=== PATIENT | female | born 1985 | race Caucasian/White ===

== ENCOUNTER → 2017-07-10 | Outpatient (CLI) | payer BC ==
[~2017-07-10] MED LIST: CETI10CA8 PO; DIPH-741 PO; PREN-127 PO
== END ==
LOC: LAB 13:36
PROVIDERS: ATTEND Obstetrics & Gynecology
DX: Z34.02 Encounter for supervision of normal first pregnancy, second trimester (principal)
CPT/HCPCS: 36415; 81220; 82105

== ENCOUNTER → 2017-07-24 | Outpatient (CLI) | payer BC ==
--- NOTE | 2017-07-24 14:15 | RADIOLOGY IMAGING REPORT ---
FACILITY: [facility] PATIENT NAME: Ginette Sosa : 1985 MR: [id number] V: [id number] EXAM DATE: ORDERING PHYSICIAN: DANITA CREWS TECHNOLOGIST: Location: [facility] - [place] Patient: Ginette Sosa : 1985 Visit/Account:[id number] Date of Sevice: 07/24/2017 ADDENDUM #1 The LMP percentile is 65% Report Dictated By: Isabella Almonte MD at 07/24/2017 2:28 PM Report E-Signed By: Isabella Almonte MD at 07/24/2017 2:28 PM ORIGINAL REPORT OB ANATOMICAL SURVEY HISTORY: COMPARISON: 20 weeks screening TECHNIQUE: Transabdominal imaging was performed for assessment of the fetus and maternal pelvic s tructures. Transvaginal imaging was not performed. FINDINGS: Intrauterine gestations: One. presentation: Variable. heart rate: 142 bpm. Amniotic fluid volume: Normal; JAYLON 11.2 cm; MVP 3 cm. Placenta: Posterior and fundal. Uterus: Gravid, otherwise grossly unremarkable where visualized. Maternal adnexa/ovaries: Grossly unremarkable, ovaries not visualized. Cervix: Grossly long and closed. Gestational Parameters: BPD: 4.32 cm and is in the 54th percentile HC: 16.51 cm and is in the 54th percentile AC: 14.6 cm and is in the 75th percentile FL: 2.83 cm and is within the 31st percentile Average ultrasound age (AUA): 19 weeks/ two days Estimated age based on LMP: 19 weeks/ zero days Estimated weight (EFW): 286 grams +/- 42 grams Anatomic Survey: Intracranial structures, 4-chamber heart, stomach, kidneys, urinary bladder, spine, 3-vessel cord and cord insertion are unremarkable. Two upper and two lower extremities visualized. IMPRESSION: Single fetus in viable presentation with an estimated gestational age by measurements of 19 weeks and two days. Estimated weight is 286 g +/- 40 2 g. Report Dictated By: Isabella Almonte MD at 07/24/2017 2:05 PM Report E-Signed By: Isabella Almonte MD at 07/24/2017 2:11 PM WSN:KORINA
== END ==
LOC: RAD 11:03
PROVIDERS: ATTEND Obstetrics & Gynecology
DX: Z02.9 Encounter for administrative examinations, unspecified (principal)

== ENCOUNTER → 2017-09-18 | Outpatient (CLI) | payer BC ==
[~2017-09-18] MED LIST changes: +DIPH0.5D12 IM
[2017-09-18 12:30] LABS: PLATELET COUNT, AUTOMATED 238 K/uL (150-450)
== END ==
LOC: LAB 10:37
PROVIDERS: ATTEND Obstetrics & Gynecology
DX: Z34.02 Encounter for supervision of normal first pregnancy, second trimester (principal)
CPT/HCPCS: 36415; 82950; 85025

== ENCOUNTER → 2017-09-23 | Outpatient (CLI) | payer BC | LOC: LAB 08:03 | PROVIDERS: ATTEND Obstetrics & Gynecology | DX: Z34.90 Encounter for supervision of normal pregnancy, unspecified, unspecified trimester (principal) | CPT/HCPCS: 36415; 82951; 82952 ==

== ENCOUNTER → 2017-09-30 | Outpatient (CLI) | payer BC | LOC: LAB 13:18 | PROVIDERS: ATTEND Obstetrics & Gynecology | DX: O03.9 Complete or unspecified spontaneous abortion without complication (principal) | CPT/HCPCS: 36415; 82040; 82247; 82310; 82374; 82435; 82565; 82570; 82947; 84075; 84132; 84155; 84156; 84295; 84450; 84460; 84520 ==

== ENCOUNTER → 2017-10-07 | Outpatient (CLI) | payer BC | LOC: LAB 08:30 | PROVIDERS: ATTEND Obstetrics & Gynecology | DX: O14.90 Unspecified pre-eclampsia, unspecified trimester (principal) | CPT/HCPCS: 36415; 82040; 82247; 82310; 82374; 82435; 82565; 82947; 84075; 84132; 84155; 84295; 84450; 84460; 84520; 85027 ==

== ENCOUNTER → 2017-10-09 | Outpatient (CLI) | payer BC ==
--- NOTE | 2017-10-09 10:13 | RADIOLOGY IMAGING REPORT ---
[place] [facility] [place] Ginette Sosa : 1985 MR: [id number] V: [id number] EXAM DATE: ORDERING PHYSICIAN: DANITA CREWS TECHNOLOGIST: Location: [facility] Patient: Ginette Sosa : 1985 Visit/Account:[id number] Date of Sevice: 10/09/2017 EXAMINATION: Ultrasound transabdominal OB > 14 weeks followup HISTORY: Preeclampsia, evaluate growth. PATRICK 12/18/2017, 30 weeks 0 days gestation. COMPARISON: Ultrasound from 07/24/2017. TECHNIQUE: Transabdominal imaging was performed for assessment of the fetus. Transvaginal imaging was not perfor med. FINDINGS: Placenta: Posterior and fundal without obvious previa. It is difficult to visualize the inferior yanira cental tip transabdominally due to position of the fetus. Uterus: gravid, otherwise normal Cervix: Obscured by shadowing from the fetus. Intrauterine gestations: One. presentation: Breech heart rate: Normal and regular at 128 bpm Amniotic fluid index: 16.8 cm Largest amniotic fluid pocket: 7.0 cm Gestational Parameters: BPD: 8.1 cm 32 weeks/ 3 days HC: 29.8 cm 33 weeks/ 0 days AC: 24.9 cm 29 weeks/ 2 days FL: 5.7 cm 30 weeks/ 1 days Average ultrasound age (AUA): 31 weeks/2 days, PATRICK 12/09/2017 Estimated gestational age by PATRICK: 30 weeks/0 days, PATRICK 12/18/2017 Estimated gestational age by most recent ultrasound: 30 weeks/2 days, PATRICK 12/16/2017 Estimated weight (EFW): 1498 grams +/- 219 grams EFW for PATRICK: 38th percentile nose and lips, stomach and diaphragm are unremarkable. IMPRESSION: 1. Single live intrauterine gestation in breech presentation. Average ultrasound age is 31 weeks 2 days, which demonstrates appropriate interval growth and is concordant with the PATRICK dates of 30 weeks 0 days. PATRICK is 12/18/2017. 2. JAYLON of 16.8 cm. 3. EFW 1498 g, 38th percentile. Report Dictated By: Tessa Garvin MD at 10/09/2017 9:44 AM Report E-Signed By: Tessa Garvin MD at 10/09/2017 10:08 AM WSN:KORINA
== END ==
LOC: RAD 08:05
PROVIDERS: ATTEND Obstetrics & Gynecology
DX: Z02.9 Encounter for administrative examinations, unspecified (principal)

== ENCOUNTER → 2017-10-14 | Outpatient (CLI) | payer BC | LOC: LAB 07:47 | PROVIDERS: ATTEND Obstetrics & Gynecology | DX: O14.93 Unspecified pre-eclampsia, third trimester (principal) | CPT/HCPCS: 36415; 82040; 82247; 82310; 82374; 82435; 82565; 82947; 84075; 84132; 84155; 84295; 84450; 84460; 84520; 85027 ==

== ENCOUNTER → 2017-10-21 | Outpatient (CLI) | payer BC | LOC: LAB 08:17 | PROVIDERS: ATTEND Obstetrics & Gynecology | DX: O14.90 Unspecified pre-eclampsia, unspecified trimester (principal); O09.90 Supervision of high risk pregnancy, unspecified, unspecified trimester | CPT/HCPCS: 36415; 82040; 82247; 82310; 82374; 82435; 82565; 82947; 84075; 84132; 84155; 84295; 84450; 84460; 84520; 85027 ==

== ENCOUNTER → 2017-11-03 | Outpatient (CLI) | payer BC ==
--- NOTE | 2017-11-03 11:00 | RADIOLOGY IMAGING REPORT ---
FACILITY: [facility] - [place] PATIENT NAME: Ginette Sosa : 1985 MR: [id number] V: [id number] EXAM DATE: ORDERING PHYSICIAN: DANITA CREWS TECHNOLOGIST: Location: [facility] - [place] Patient: Ginette Sosa : 1985 Visit/Account:[id number] Date of Sevice: 11/03/2017 [facility] OB LIMITED HISTORY: Preeclampsia COMPARISON: October 09, 2017 TECHNIQUE: Transabdominal imaging was performed for assessment of the fetus and maternal pelvic s tructures. Transvaginal imaging was not performed. FINDINGS: Intrauterine gestations: One. presentation: Variable. heart rate: 123 bpm. Amniotic fluid volume: Normal; JAYLON 17.9 cm; MVP 5.8 cm. Placenta: Posterior and fundal. Uterus: Gravid, otherwise grossly unremarkable where visualized. Maternal adnexa/ovaries: Not evaluated. Cervix: Not evaluated. Gestational Parameters: BPD: 8.8 cm, 93rd percentile HC: 32 cm, 78th percentile AC: 30 cm, 64th percentile FL: 6.6 cm, 48th percentile Average ultrasound age (AUA): 35 weeks/ zero days Estimated age based on LMP: 33 weeks/ four days, 66th percentile Estimated weight (EFW): 2402 grams +/- 351 grams Anatomic Survey: Anatomic survey was not performed. IMPRESSION: Single viable fetus in variable presentation with an estimated gestational age by measurements of 35 weeks and zero days. There has been interval growth when compared to the prior study. Based o n the LMP the fetus is in the 66th percentile JAYLON 17.9 Estimated weight 2402 g Report Dictated By: Isabella Almonte MD at 11/03/2017 10:47 AM Report E-Signed By: Isabella Almonte MD at 11/03/2017 10:55 AM WSN:KORINA
== END ==
LOC: RAD 08:05
PROVIDERS: ATTEND Student in an Organized Health Care Education/Training Program
DX: Z02.9 Encounter for administrative examinations, unspecified (principal)

== ENCOUNTER → 2017-11-04 | Outpatient (CLI) | payer BC | LOC: LAB 08:03 | PROVIDERS: ATTEND Obstetrics & Gynecology | DX: O14.93 Unspecified pre-eclampsia, third trimester (principal) | CPT/HCPCS: 36415; 82040; 82247; 82310; 82374; 82435; 82565; 82947; 84075; 84132; 84155; 84295; 84450; 84460; 84520; 85027 ==

== ENCOUNTER → 2017-11-11 | Outpatient (CLI) | payer BC | LOC: LAB 08:24 | PROVIDERS: ATTEND Obstetrics & Gynecology | DX: O14.93 Unspecified pre-eclampsia, third trimester (principal); O09.93 Supervision of high risk pregnancy, unspecified, third trimester; Z36.85 Encounter for antenatal screening for Streptococcus B | CPT/HCPCS: 36415; 82040; 82247; 82310; 82374; 82435; 82565; 82947; 84075; 84132; 84155; 84295; 84450; 84460; 84520; 85027; 87081 ==

== ENCOUNTER → 2017-11-18 | Outpatient (CLI) | payer BC | LOC: LAB 08:22 | PROVIDERS: ATTEND Obstetrics & Gynecology | DX: O14.93 Unspecified pre-eclampsia, third trimester (principal); O09.93 Supervision of high risk pregnancy, unspecified, third trimester | CPT/HCPCS: 36415; 82040; 82247; 82310; 82374; 82435; 82565; 82947; 84075; 84132; 84155; 84295; 84450; 84460; 84520; 85027 ==

== ENCOUNTER 2017-11-26 18:58 | Inpatient (IN) | payer BC ==
[~2017-11-26] VITALS: Ht 167.6 cm; Wt 73.5 kg
[~2017-11-26 18:58] MED LIST changes: +BET6I IM ONLY; +FLU60SYR36 IM
[2017-11-26 19:26] VITALS: BP 134/82; Ht 167.6 cm; Wt 73.5 kg
[2017-11-26] MEDS ORDERED: ceFAZolin(*) 2GM/D5W 50ML 50 ML IVPB PRN (19:38)
[2017-11-26] MEDS ORDERED: FAMOTIDINE(*) 20MG/50ML PREMIX 50 ML IVPB PRN (19:38)
[2017-11-26] MEDS ORDERED: TERBUTALINE SULF 1 MG/ML VIAL IVP PRN (19:40)
[2017-11-26] MEDS ORDERED: LIDOCAINE 1% LOCAL 300 MG/30ML INJ PRN (19:40)
[2017-11-26] MEDS ORDERED: LIDOCAINE/SOD BICARB 8.4% SYR SC PRN (19:40)
[2017-11-26] MEDS ORDERED: fentaNYL CITR 100 MCG/2 ML AMP IVP PRN (19:40)
[2017-11-26] MEDS ORDERED: ONDANSETRON 4 MG/2 ML VIAL IVP PRN (19:40)
[2017-11-26] MEDS ORDERED: METOCLOPRAMIDE 10 MG/2 ML SDV IVP PRN (19:40)
[2017-11-26] MEDS ORDERED: FLUSH 10 ML SYR IVP PRN (19:40)
[2017-11-26] MEDS ORDERED: ZOLPIDEM TARTRATE 5 MG TAB PO PRN (19:40)
[2017-11-26] MEDS: MISOPROSTOL 25 MCG CAP PV PRN (19:59)
[2017-11-26 20:08] LABS: PLATELET COUNT, AUTOMATED 225 K/uL (150-450)
[2017-11-26] MEDS ORDERED: OXYTOCIN 30 UNIT/D5LR 500 ML 500 ML IV PRN (21:03)
[2017-11-27] VITALS (8 sets, daily range): BP systolic 82–129; BP diastolic 29–87
[2017-11-27] MEDS: MISOPROSTOL 25 MCG CAP PV PRN (00:10)
[2017-11-27] MEDS: LR(*) 1000 ML BAG 1,000 ML IV SCH ×3 (07:55→20:30)
--- NOTE | 2017-11-27 08:38 | History & Physical ---
History of Present Illness EDC per LMP: Dec 19, 2017 Estimated Gestational Age: 37.0 Chief Complaint Induction for preeclampsia History of Present Illness 32yo at 37w0d presents for IOL for preeclampsia without severe features. She reports some cramping with cytotec overnight. No VB, LOF. No preeclampsia symptoms. Positive FM. PNR reviewed. PNC by IMG. History Patient's Blood Type: A Positive Rubella Status: Immune Group B Strep Screen: Negative Obstetrical History: Primip Past Medical History: PMH: None PSH: Hernia repair as a child, wisdom teeth Allergies: Coded Allergies: No Known Drug Allergies (Unverified , 05/26/17) Social History: No T/E/D. . Family History: FH: breast cancer MAT GRANDMOTHER Med Rec Home Meds Reported Medications Diphenhydramine Hcl (BENADRYL ALLERGY) 25 Mg Tablet, 25 MG PO Q6-8H PRN for allergies, TAB 05/26/17 Vits W-Ca,Fe,Fa(<1MG) ( VITAMINS) 1 Each Tablet, 1 EACH PO DAILY, TAB 05/26/17 Discontinued Reported Medications Cetirizine Hcl (ZYRTEC) 10 Mg Capsule, 10 MG PO QDAY, CAPSULE 05/26/17 Review of Systems Constitutional: No Fever Neurological: No Syncope Eyes: No Vision Change Cardiovascular: No Chest Pain Respiratory: No Shortness of Breath, No Cough Gastrointestinal: No Nausea, No Vomiting, No Diarrhea Genitourinary: No Dysuria Musculoskeletal: No Pain Psychiatric: No Depression, No Anxiety Exam General Exam Vital Signs Vital Signs Date Time Temp Pulse Resp B/P (MAP) Pulse Ox O2 Delivery O2 Flow Rate FiO2 11/26/17 19:26 98.8 82 14 134/82 (99) 97 Room Air General Apperance: Alert/Awake/No Acute Distress Neuro: No Gross deficits Eyes: Normal Extraocular Movement & Vison Cardiovascular: Regular Rate and Rhythm Respiratory: No Respiratory Distress, Clear to Auscultation Abdomen: Gravid - Non-Tender : Normal Musculoskeletal: No Weakness/Pain Extremities: No Cyanosis,Clubbing or Edema Integumentary: Skin Intact without Lesions or Rash Psychological: Alert & Oriented X3, Appropriate Mood & Affect Cervical Dialation: 2 Cervical Effacement (%): 75 Cervical Consistency: Moderate Cervical Position: Mid Station: -1 Presentation: Vertex Uterine Contractions(Q min): 3 Uterine Contraction Strength: Mild UC Resting Tone: Soft Fetus Feeling Movement?: Yes FHT Category: I Medical Decision Making Data Points Result Diagram: 11/26/17195211/26/171952 Pre-Admit Course Medical Record Review: Yes VTE Prophylasis: Adult Deep Vein Thrombosis/Pulmonary: No Assessment and Plan Problems: (1) Pre-eclampsia affecting , antepartum Assessment & Plan: 32-year-old presents at 37 weeks for an induction due to preeclampsia without severe features. She received 2 doses of Cytotec for cervical ripening overnight. Her Deleon score is improved, but I would like it better before strong contractions are started. Will start with very low-dose Pitocin and increased slowly to see if this will help ripen. (2) 37 weeks gestation of DANITA CREWS MD Nov 27, 2017 07:45
--- NOTE | 2017-11-27 12:41 | Labor Progress Note ---
Labor Subjective Progress Notes Subjective Pt is feeling an increase in cramping. No bleeding. +FM. Labor Objective Vital Signs Vital Signs Date Time Temp Pulse Resp B/P (MAP) Pulse Ox O2 Delivery O2 Flow Rate FiO2 11/26/17 19:26 98.8 82 14 134/82 (99) 97 Room Air Cervical Dialation: 2 Cervical Effacement (%): 75 Cervical Consistency: Soft Cervical Position: Mid Station: -1 Presentation: Vertex Uterine Contractions(Q min): 5 Uterine Contraction Strength: Mild UC Resting Tone: Soft Fetus FHT Category: I General Exam General Appearance: Alert/Awake/No Acute Distress Cardiovascular: Normal Rhythm & Peripheral Pulses Respiratory: No Respiratory Distress, Clear to Auscultation Abdomen: Gravid - Non-Tender : Normal Musculoskeletal: No Weakness/Pain Extremities: No Cyanosis,Clubbing or Edema Integumentary: Skin Intact without Lesions or Rash Psychological: Alert & Oriented X3, Appropriate Mood & Affect Other Result Diagram: 11/26/17195211/26/171952 Assessment and Plan Problems: (1) Pre-eclampsia affecting , antepartum Assessment & Plan: Pitocin ripening is going well. Will continue this low dose protocol for now. Consider AROM later. (2) 37 weeks gestation of DANITA CREWS MD Nov 27, 2017 12:41
[2017-11-27] MEDS ORDERED: EPIDURAL KEYS XX PRN (15:00)
[2017-11-27] MEDS ORDERED: LIDO/EPI 2% MPF 1:200,000 20ML EPI PRN (16:10)
[2017-11-27] MEDS ORDERED: BUPIVACAINE 0.5% INJ 30ML VIAL EPI PRN (16:10)
[2017-11-27] MEDS ORDERED: BUPIVACAINE 0.25% MPF INJ EPI PRN (16:10)
[2017-11-27] MEDS ORDERED: fentaNYL CITR 100 MCG/2 ML AMP IT PRN (16:10)
[2017-11-27] MEDS ORDERED: LIDOCAINE/PF 2% 200MG/10ML AMP 200 MG/10 ML AMPUL EPI PRN (16:10)
[2017-11-27] MEDS ORDERED: FENTANYL/ROPIVACAINE 100 ML BAG EPI PRN (16:10)
--- NOTE | 2017-11-27 17:30 | Labor Progress Note ---
Labor Subjective Progress Notes Subjective Pt is feeling more pain with contractions, almost ready for epidural. Labor Objective Vital Signs Vital Signs Date Time Temp Pulse Resp B/P (MAP) Pulse Ox O2 Delivery O2 Flow Rate FiO2 11/26/17 19:26 98.8 82 14 134/82 (99) 97 Room Air Vaginal Discharge/Fluid?: Clear Fluid Cervical Dialation: 3.5 Cervical Effacement (%): 90 Cervical Consistency: Soft Cervical Position: Mid Station: -1 Presentation: Vertex Uterine Contractions(Q min): 2 Uterine Contraction Strength: Moderate UC Resting Tone: Soft Fetus FHT Category: I General Exam General Appearance: Alert/Awake/No Acute Distress Abdomen: Gravid - Non-Tender Musculoskeletal: No Weakness/Pain Extremities: No Cyanosis,Clubbing or Edema Integumentary: Skin Intact without Lesions or Rash Psychological: Alert & Oriented X3, Appropriate Mood & Affect Other Result Diagram: 11/26/17195211/26/171952 Assessment and Plan Problems: (1) Pre-eclampsia affecting , antepartum Assessment & Plan: Pt now ready for epidural. Continue pitocin. (2) 37 weeks gestation of DANITA CREWS MD Nov 27, 2017 17:30
--- NOTE | 2017-11-27 17:54 | Anesthesia OB Pre-Anes Eval ---
History of Present Illness Anesthesia Start Date: Nov 27, 2017 Anesthesia Start Time: 16:59 OB Anesthesia Diagnosis: induction - medical Current Complication: other (proteinuria) EDC: Dec 18, 2017 : 1 Para: 0 Pain Ratin Result Diagram: 11/26/17195211/26/171952 Height (Inches): 66.00 Weight (Pounds): 162 BMI Calculated: 26.14 Past Medical History Medical History: no pertinent history Surgical History: other (hernia) Previous Anesthesia: general Attended Childbirth Classes?: Yes Hx Anesthesia Reactions: No Hx Family Anesthesia Reaction: No Current Medications: pitocin Home Meds Reported Medications Diphenhydramine Hcl (BENADRYL ALLERGY) 25 Mg Tablet, 25 MG PO Q6-8H PRN for allergies, TAB 05/26/17 Vits W-Ca,Fe,Fa(<1MG) ( VITAMINS) 1 Each Tablet, 1 EACH PO DAILY, TAB 05/26/17 Discontinued Reported Medications Cetirizine Hcl (ZYRTEC) 10 Mg Capsule, 10 MG PO QDAY, CAPSULE 05/26/17 Allergies: Coded Allergies: No Known Drug Allergies (Unverified , 05/26/17) Anesthesia OB ROS Neurological: No migraines/headaches, No seizures, No neuropathy, No other ENT: Denies Tooth caps, Denies Loose teeth, Denies Chipped teeth, Denies Dentures, Denies Bridges, Denies Retainers, Denies Veneers, Denies Implants, Denies Tongue ring, Denies Other Pulmonary: No asthma, No smoker (pks/day/yrs), No other Airway Class: l Cardiovascular ROS: No edema, No arrhythmia, No other GI ROS: clear liquids Last Solids Date: Nov 27, 2017 Last Solids Time: 12:00 ROS: No Herpes, No STD(s), No Liver Disease, No Renal Disease, No Other Endocrine ROS: No diabetes, No gestational diabetes, No thyroid disorder, No other Musculoskeletal ROS: No low back pain, No low back injury, No scoliosis, No other ASA Classification: 2 Assessment and Plan Anesthesia Plan: SUKUMAR ISSA CRNA Nov 27, 2017 17:54
--- NOTE | 2017-11-27 17:57 | Procedure Note ---
Anesthetic Placement Note Anesthesia Plan: CSE Permit for Anesthesia Signed: Yes Anesthesia Technique: Patient Sitting Anesthesia Prep: Chlorhexidine Interspace: L 3-4 Local Anesthetic: 1% Lidocaine Amount Local - cc's: 3 Anesthesia Needle: 17g Touhjohn/Mendozaff Anesthesia Attempts: 1 Loss of Resistance: Normal Saline Depth of JAGUAR (cm): 4 Epidural Needle Placement: No CSF, No Blood, No Parasthesia Intrathecal Needle: 27 Gauge Pencan Cerebral Spinal Fluid: Yes, Clear Catheter Insertion (cm): 4 (8cm at skin) Catheter Type: Young - Spring Wound Epidural Dressing: Tegaderm, Tape Anesthesia Tray: Lot Number ([id number]), Expiration Date (11/05), Reference Number ([id number]) Anesthesia Medications: Intrathecal Dose: mcg Fentanyl (10), mg Marcaine MPF (2.5), Time (1715) Epidural Test Dose: 1.5 Lido/Epi (1:200,000), Dose - mL (3), Time (1718), Negative Epidural Infusion: 0.2% Ropivicaine, With Fentanyl 2mcg/ml, Start Time: (1731) Epidural Pump Setting: Bolus Dose - mL (8), Lockout - Minutes (20), Maintenance Rate - mL/hr (6), Maximum per Hour - mL (30) Complications: None SUKUMAR RAMIREZ CRNA Nov 27, 2017 17:57
[2017-11-27] MEDS ORDERED: LIDO/EPI 2% MPF 1:200,000 20ML ONE (20:34)
[2017-11-27] MEDS ORDERED: OXYTOCIN 10 UNIT/ML SDV ONE (20:38)
[2017-11-27] MEDS ORDERED: MORPHINE PF 5 MG/10 ML AMP ONE (20:39)
[2017-11-27] MEDS ORDERED: KETOROLAC 30 MG/ML VIAL ONE (21:30)
--- NOTE | 2017-11-27 21:54 | Anesthesia Progress Note ---
Progress/Maintenance Anesthesia Note Date: Nov 27, 2017 Anesthesia Note Time: 20:45 Pain Intensity: 0 Pump: Off Dilatation: 7 Anesthesia Treatment: To OR, see OR record Assessment and Plan Anesthesia Plan: CSE Anesthesia Stop Day: Nov 27, 2017 Anesthesia Stop Time: 21:45 Epidural Catheter Removal: Removed Catheter Intact, Yes, Removed by: [place] SKINNER) SUKUMAR RAMIREZ CRNA Nov 27, 2017 21:54
[2017-11-27] MEDS ORDERED: DLR(*) 1000 ML BAG 1,000 ML IV PRN (21:57)
[2017-11-27] MEDS ORDERED: OXYTOCIN 30 UNIT/LR 500 ML 500 ML IV PRN (21:57)
--- NOTE | 2017-11-27 21:57 | Post Operative Note ---
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 Operative Day Date: Nov 27, 2017 Physicians Surgeon: Shani Anesthesia: Epidural, Barb Dobbs Diagnosis Pre-Op Diagnosis: IUP at 37w0d with nonreassuring heart tones, suspect placental abruption Preeclampsia without severe features Post-Op Diagnosis: IUP at 37w0d with nonreassuring heart tones due to placental abruption Preeclampsia without severe features Viable male at 2104hrs, 2554g (5#10oz), Apgars 9/9 Procedure Findings: Umbilical artery pH 7.23 Procedure(s): PLTCD Specimen Removed:(Maybe N/A): Placenta Fluids Fluids: IVF: 450cc UOP: 100cc Estimated Blood Loss: 750cc DANITA CREWS MD Nov 27, 2017 21:57
[2017-11-27] MEDS ORDERED: LANOLIN OINT 7 GM TUBE TP PRN (22:00)
[2017-11-27] MEDS ORDERED: ONDANSETRON 4 MG/2 ML VIAL IV PRN (22:00)
[2017-11-27] MEDS ORDERED: MAGNESIUM HYDROXIDE* 30ML UDCP PO PRN (22:00)
[2017-11-27] MEDS ORDERED: INFLUENZA VIRUS VAC 0.5ML SYR IM ONLY ONE (22:00)
[2017-11-27] MEDS ORDERED: ACETAMINOPHEN 325 MG TAB PO PRN (22:00)
[2017-11-27] MEDS ORDERED: DIPHTH/TETANUS/ACEL. PERTUSSIS IM ONLY ONE (22:00)
[2017-11-27] MEDS ORDERED: PROMETHAZINE 25 MG/ML 1 ML AMP IVP PRN (22:00)
[2017-11-27] MEDS ORDERED: MEASLES,MUMP,RUBELLA VAC 0.5ML SUBQ ONE (22:00)
[2017-11-27] MEDS ORDERED: OXYC-865 PO (22:02)
[2017-11-27] MEDS ORDERED: IBUP800T37 PO (22:02)
[2017-11-27] MEDS ORDERED: NS 0.9% IRRIGATION 1000ML PLCT IR ONE (23:08)
[2017-11-28] MEDS ORDERED: IBUPROFEN 800 MG TAB PO SCH ×2 (01:00→22:00)
[2017-11-28] MEDS: LR(*) 1000 ML BAG 1,000 ML IV SCH (01:46)
[2017-11-28] MEDS ORDERED: diphenhydrAMINE 50 MG/ML VIAL IVP ONE (03:00)
[2017-11-28 03:12] VITALS: BP 118/75
[2017-11-28] MEDS ORDERED: KETOROLAC 30 MG/ML VIAL IVP SCH ×4 (04:00)
[2017-11-28] MEDS ORDERED: NALBUPHINE HCL 10 MG/ML AMP IVP ONE (05:20)
[2017-11-28 07:00] LABS: PLATELET COUNT, AUTOMATED 169 K/uL (150-450)
--- NOTE | 2017-11-28 07:21 | OPERATIVE REPORT 1 ---
EVENT DATE: November 27, 2017 SURGEON: Adela Mcleod MD ANESTHESIOLOGIST: Barb Dobbs CRNA ANESTHESIA: Epidural PREOPERATIVE DIAGNOSIS 1. Intrauterine at 37 weeks and 0 days with nonreassuring status, suspect placental abruption. 2. Preeclampsia without severe features. POSTOPERATIVE DIAGNOSIS 1. Intrauterine at 37 weeks and 0 days with nonreassuring heart status due to placental abruption. 2. Preeclampsia without severe features. 3. Delivery of a viable male infant at 21:04 hours weighing 2554 grams or 5 lbs. 10 oz. with Apgars at 9 at one minute and 9 at five minutes. PROCEDURE PERFORMED Primary low transverse delivery. SPECIMENS REMOVED Placenta. IV FLUIDS 450 cc. URINE OUTPUT 100 cc. ESTIMATED BLOOD LOSS 750 cc. INDICATIONS FOR PROCEDURE This patient is a 32-year-old 1, para 0 who presented at 37 weeks and 0 days for an induction of labor due to preeclampsia without severe features. At the time of presentation, she was 150 and -2 station. She received 2 doses of Cytotec overnight and then was allowed to start on the slow Pitocin protocol the next day. She was able to progress to 3 cm and experienced a spontaneous rupture of membranes. She then was increased on Pitocin protocol and became 4 cm dilated. At that time, it was approximately 19:30 hours and the heart rates began demonstrating occasional late decelerations. The Pitocin was halved at that time and IV fluid bolus and oxygen were administered. This did not improve the status, therefore, upon the next evaluation the patient was noted to be transitioning and was 6 cm dilated and 0 station. However, with this evaluation there was blood tinged fluid that came out of the vagina. At this time, I suspected an early placental abruption. We waited an additional 10-15 minutes to see if she would continue to progress in dilation. The recurrent late decelerations continued at that time. I then evaluated the patient's cervix again and she was nearly 8 cm which confirmed she was moving quickly. However, after the end of this check there was a large blood clot that came out of the vagina on my glove. At this time, I recommended an emergency delivery due to suspected placental abruption. The patient elected to proceed. Please see the history and physical for full details. DESCRIPTION OF PROCEDURE The patient was properly identified and taken to the operating room. She previously had an epidural in place which was bolused. She had a Foster catheter in place. She was transitioned to the operating room bed and prepped and draped in the usual fashion for a lower abdominal surgery. A timeout was taken and Ancef was administered preoperatively. After adequate anesthesia was confirmed, a Pfannenstiel incision was made over the lower abdomen sharply and carried down to the low rectus fascia. The fascia was nicked in the midline and the incision was extended bilaterally. The rectus fascia was from the underlying rectus muscle in a blunt fashion. The peritoneum was identified and entered in a blunt fashion. The incision was then extended bluntly. A bladder blade was then placed and the scalpel was utilized to make a transverse incision on the lower uterine segment. This revealed ruptured membranes and some small amount of blood tinged tissue. The vertex was attempted to be delivered through the uterine incision in the direct OP position. There was some difficulty getting the appropriate angle in order to deliver the vertex. Therefore, a Kiwi vacuum was requested and placed on the top of the head. Once this was taken to the level of the green vacuum, a very gentle traction was placed just to deliver the 's vertex through the abdominal incision which was done without difficulty. The vacuum was then released. The anterior shoulder delivered easily followed by the posterior shoulder. The remainder of the delivered without complication. The had spontaneous cry and spontaneous movement of all four extremities. At this juncture, the placenta was noted to be coming out of the abdominal incision already before the cord was even clamped. The oropharynx and nasopharynx were bulb suctioned. The cord was clamped x 2 and cut and the was passed to nursing personnel in good condition. Dr. Martin, the subsea engineer was present for this delivery. The umbilical artery blood gas was then obtained and sent off. The cord blood was then obtained also. The placenta was further delivered through the abdominal incision spontaneously. The placenta was then sent to pathology. The uterus was exteriorized and cleared of any remaining clots and debris. Bilateral tubes and ovaries were visualized and within normal limits. The uterine incision was reapproximated using an 0 Vicryl working from apex to the next followed by a second imbricating layer of 0 Monocryl. Hemostasis was assured and the uterus was replaced into the abdominal cavity. The pericolic gutters were cleared of clots and debris. The uterine incision was again inspected and noted to be hemostatic. The peritoneum was then reapproximated using a 2-0 Monocryl followed by reapproximation of the rectus muscle in the midline. Copious irrigation of the rectus muscle was performed and hemostasis was assured. The rectus fascia was then reapproximated using an 0 Vicryl working from one apex to the next. The subcutaneous tissue was copiously irrigated and made hemostatic. The skin was then closed with Insorb dave. A PermaFoam dressing was placed and a pressure dressing was placed on top of that. The patient tolerated this procedure well and recovered in the Labor and Delivery with her infant. All sponge, needle, and instrument counts were correct at the end of this procedure. LUIS
[2017-11-28 08:30] VITALS: BP 106/63
[2017-11-28] MEDS: FAMOTIDINE 20 MG TAB PO SCH ×2 (09:17→21:35)
[2017-11-28] MEDS: DOCUSATE CALCIUM 240 MG CAP PO SCH ×2 (09:17→21:35)
--- NOTE | 2017-11-28 10:06 | OB/GYN Progress Note ---
OB Subjective Progress Notes Subjective Doing well. Pain controlled with oral medications. Tolerating regular diet. Not yet ambulating. Foster still. Normal lochia. No preeclampsia symptoms. OB Objective Physical Exam Vital Signs Date Time Temp Pulse Resp B/P (MAP) Pulse Ox O2 Delivery O2 Flow Rate FiO2 11/28/17 03:12 98.3 75 14 118/75 (89) 96 Room Air 11/27/17 22:30 2.0 Intake and Output 11/28/17 06:59 Intake Total 2450 ml Output Total 3450 ml Balance -1000 ml Intake Oral 200 ml IV Total 2250 ml Output Urine Total 1700 ml Estimated Blood Loss 750 ml Other 1000 ml General Appearance: Alert/Awake/No Acute Distress Neurological: No Gross deficits Eyes: Normal Extraocular Movement & Vison Cardiovascular: Normal Rhythm & Peripheral Pulses Respiratory: No Respiratory Distress, Clear to Auscultation Abdomen: Soft, Non-Tender, Non-Distended Incision: Clean, Dry, Intact, Dressing Musculoskeletal: No Weakness/Pain Extremities: No Cyanosis,Clubbing or Edema Integumentary: Skin Intact without Lesions or Rash Psychological: Alert & Oriented X3, Appropriate Mood & Affect Result Diagram: 11/28/17 0652 11/26/17 195 Assessment and Plan Problems: (1) Status post delivery Assessment & Plan: POD#1 s/p PLTCD for placental abruption. Routine orders. (2) Pre-eclampsia affecting , antepartum Assessment & Plan: BP stable since delivery. DANITA CREWS MD Nov 28, 2017 10:06
[2017-11-28] MEDS: KETOROLAC 30 MG/ML VIAL IVP SCH ×2 (10:09→16:10)
[2017-11-28 13:50] VITALS: BP 123/81
--- NOTE | 2017-11-28 13:55 | Anesthesia Post Eval Note ---
Anesthesia Post Eval Note Vital Signs 11/27/17 11/28/17 22:30 08:30 Temp 98.6 Pulse 77 Resp 18 B/P (MAP) 106/63 (77) Pulse Ox 97 O2 Delivery Room Air O2 Flow Rate 2.0 Pt able to participate in Eval: Yes Cardiovascular Status: Satisfactory Respiratory Status: Satisfactory Pain Managment: Satisfactory PO Nausea/Vomiting: Satisfactory Temperature Management: Satisfactory Mental Status: Satisfactory, Alert, Oriented X3 Post-Op Hydration Status: Satisfactory, Tolerating PO Well, Voiding w/o Difficulty Anesthesia Type: SUKUMAR ISSA CRNA Nov 28, 2017 13:55
[2017-11-28 15:20] VITALS: BP 112/71
[2017-11-28 20:20] VITALS: BP 129/71
[2017-11-29 03:30] VITALS: BP 115/71
[2017-11-29] MEDS ORDERED: KETOROLAC 30 MG/ML VIAL IVP SCH (04:00)
[2017-11-29] MEDS: IBUPROFEN 800 MG TAB PO SCH ×3 (06:42→22:08)
--- NOTE | 2017-11-29 08:21 | OB/GYN Progress Note ---
OB Subjective Progress Notes Subjective Doing good this morning. Tolerating PO intake. Ambulatory. Lochia appropriate. Pain controlled with PO pain medications. Voiding with out any difficulty or dysuria. GI: NEG Nausea, NEG Vomiting, NEG Flatus, NEG Bowel Movement : Voiding Well Pain: Mild, Tolerating PO Pain Meds Neurological: No Headache, No Other Eyes: No Visual Disturbances OB Objective Physical Exam Vital Signs Date Time Temp Pulse Resp B/P (MAP) Pulse Ox O2 Delivery O2 Flow Rate FiO2 11/29/17 03:30 98.1 71 14 115/71 (86) 94 Room Air 11/27/17 22:30 2.0 Intake and Output 11/29/17 07:00 Intake Total 1025 ml Output Total 3825 ml Balance -2800 ml IV Total 1025 ml Output Urine Total 3825 ml # Voids 2 General Appearance: Alert/Awake/No Acute Distress Neurological: No Gross deficits Eyes: Normal Extraocular Movement & Vison Cardiovascular: Normal Rhythm & Peripheral Pulses Respiratory: No Respiratory Distress, Clear to Auscultation Abdomen: Soft, Non-Tender, Non-Distended Incision: Clean, Dry, Intact Musculoskeletal: No Weakness/Pain Extremities: No Cyanosis,Clubbing or Edema Integumentary: Skin Intact without Lesions or Rash Psychological: Alert & Oriented X3, Appropriate Mood & Affect Result Diagram: 11/28/17 0652 11/26/17 195 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 If she desires to go home today she can be discharged. If having difficulty meeting post operative goals/guidelines will plan to monitor overnight. No elevated blood pressure. Blood work remains normal. (2) Pre-eclampsia affecting , antepartum STUART RICK DO Nov 29, 2017 08:21
--- NOTE | 2017-11-29 08:23 | OB/GYN Discharge Summary ---
Discharge Summary Reason for Hosp/Final Diag: (1) Status post delivery Hospital Course & Plan: Pt presented for scheduled IOL secondary to Pre- eclampsia at 37 weeks gestation. Pt was progressing and showed signs of Abruption and was taken to the OR for C/S delivery. See delivery note for details of procedure. Pt remained in the hospital for her Post op course and was discharged home once meeting discharge goals. (2) Pre-eclampsia affecting , antepartum Lates Vital Signs Vital Signs Date Time Temp Pulse Resp B/P (MAP) Pulse Ox O2 Delivery O2 Flow Rate FiO2 11/29/17 03:30 98.1 71 14 115/71 (86) 94 Room Air 11/27/17 22:30 2.0 Weight (Pounds): 162 Result Diagram: 11/28/1752 11/26/171952 Condition: Improved Discharge: Home Home Meds Active Scripts Oxycodone Hcl/Acetaminophen (PERCOCET 5-325 MG TABLET) 1 Each Tablet, 1 TAB PO Q4-6H PRN for pain, #20 TAB 0 Refills Prov:DANITA MCLEOD MD 11/27/17 Reported Medications Diphenhydramine Hcl (BENADRYL ALLERGY) 25 Mg Tablet, 25 MG PO Q6-8H PRN for allergies, TAB 05/26/17 Vits W-Ca,Fe,Fa(<1MG) ( VITAMINS) 1 Each Tablet, 1 EACH PO DAILY, TAB 05/26/17 Discontinued Reported Medications Cetirizine Hcl (ZYRTEC) 10 Mg Capsule, 10 MG PO QDAY, CAPSULE 05/26/17 Follow up with: [facility] [phone], Dr. Mcleod [phone] Follow up in: 2 wks PO Discharge Diet: As Tolerates, Resume Prior Admit Diet, Increase Fluid Intake Discharge Activity: No Heavy Lifting > 10lb, Pelvic Rest STUART RICK DO Nov 29, 2017 08:23
[2017-11-29] MEDS: SIMETHICONE 80 MG CHEW CHEW PRN ×4 (09:28→22:12)
[2017-11-29] MEDS: DOCUSATE CALCIUM 240 MG CAP PO SCH ×2 (09:28→20:21)
[2017-11-29] MEDS: FAMOTIDINE 20 MG TAB PO SCH ×2 (09:28→20:21)
[2017-11-29 09:30] VITALS: BP 110/59
[2017-11-29 14:00] VITALS: BP 106/62
[2017-11-29 20:22] VITALS: BP 120/71
[2017-11-30 04:28] VITALS: BP 110/68
[2017-11-30] MEDS: IBUPROFEN 800 MG TAB PO SCH (05:55)
[2017-11-30] MEDS: SIMETHICONE 80 MG CHEW CHEW PRN (06:01)
[2017-11-30] MEDS: FAMOTIDINE 20 MG TAB PO SCH (08:38)
[2017-11-30] MEDS: DOCUSATE CALCIUM 240 MG CAP PO SCH (08:39)
[2017-11-30 08:40] VITALS: BP 115/73
--- NOTE | 2017-11-30 11:37 | OB/GYN Progress Note ---
OB Subjective Progress Notes Subjective Doing good this morning. Reports that she feels way better today then yesterday, glad she stayed overnight. Good movement. Appropriate Lochia. Tolerating po intake. GI: NEG Nausea, NEG Vomiting, NEG Flatus, NEG Bowel Movement : Voiding Well Pain: Mild, Moderate, Tolerating PO Pain Meds Neurological: No Headache, No Other Eyes: No Visual Disturbances OB Objective Physical Exam Vital Signs Date Time Temp Pulse Resp B/P (MAP) Pulse Ox O2 Delivery O2 Flow Rate FiO2 11/30/17 08:40 98.6 90 16 115/73 (87) 94 Room Air 11/27/17 22:30 2.0 Intake and Output 11/30/17 06:59 Intake Total 120 ml Balance 120 ml Intake Oral 120 ml General Appearance: Alert/Awake/No Acute Distress Neurological: No Gross deficits Eyes: Normal Extraocular Movement & Vison Cardiovascular: Normal Rhythm & Peripheral Pulses Respiratory: No Respiratory Distress, Clear to Auscultation Abdomen: Soft, Non-Tender, Non-Distended Incision: Clean, Dry, Intact Musculoskeletal: No Weakness/Pain Extremities: No Cyanosis,Clubbing or Edema Integumentary: Skin Intact without Lesions or Rash Psychological: Alert & Oriented X3, Appropriate Mood & Affect Result Diagram: 11/28/17 0652 11/26/17 195 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 Plan for discharge today. Follow up with Shani in two weeks. (2) Pre-eclampsia affecting , antepartum STUART RICK DO Nov 30, 2017 11:37
== END 2017-11-30 13:05 | disposition home or self-care (01) | DRG 788 ==
LOC: OB 18:58
PROVIDERS: ADMIT Obstetrics & Gynecology; ATTEND Obstetrics & Gynecology
PROC: 3E0P7VZ Introduction of Hormone into Female Reproductive, Via Natural or Artificial Opening (ICD-10-PCS; 2017-11-26)
PROC: 10D00Z1 Extraction of Products of Conception, Low, Open Approach (ICD-10-PCS; principal; 2017-11-27 20:50)
DX: O14.04 Mild to moderate pre-eclampsia, complicating childbirth (principal); O45.93 Premature separation of placenta, unspecified, third trimester; O76 Abnormality in fetal heart rate and rhythm complicating labor and delivery; Z3A.37 37 weeks gestation of pregnancy; Z37.0 Single live birth
CPT/HCPCS: 36415; 82040; 82247; 82310; 82374; 82435; 82565; 82947; 84075; 84132; 84155; 84295; 84450; 84460; 84520; 85025; 86850; 86900; 86901; 88307; J1200; J1885; J2270; J2300; J2405; J2590; J3010; J7120; S0020